=== PATIENT | male | born 1960 | race Caucasian/White ===

== ENCOUNTER 2025-09-26 09:08 | Day surgery (SDC) | payer BC, MEDICARE ==
[2025-09-26] MEDS ORDERED: LIDOCAINE HCL 2% 100 MG/5 ML IJ ONE (09:09)
[2025-09-26] MEDS ORDERED: propofoL IV ONE (10:50)
[2025-09-26] MEDS ORDERED: Lactated Ringers 1,000 ML IV ONE (11:27)
--- NOTE | 2025-09-26 12:14 | XRAY ---
17 seconds of fluoroscopy was used in surgery for a bilateral L4-S1 MBB.
--- NOTE | 2025-09-26 12:16 | XRAY ---
Indication: Bilateral L4-S1 MBB. Intraoperative fluoroscopy provided for 17 seconds. Single digital spot image submitted for interpretation demonstrates posterior needle tips projecting over expected left and right L4-S1 nerve roots. Correlate with intraoperative findings/report. Incidental incompletely visualized mid lumbar fusion hardware.
== END 2025-09-26 11:22 | disposition home or self-care (01) ==
LOC: SDC-PAIN 09:08
PROVIDERS: ATTEND Psychiatry & Neurology Pain Medicine
DX: M47.817 Spondylosis without myelopathy or radiculopathy, lumbosacral region (principal); R73.03 Prediabetes